=== PATIENT | male | born 2000 | race African-American/Black ===

== ENCOUNTER 2025-01-13 10:14 | Inpatient (IN) | payer OTHER ==
[~2025-01-13] VITALS: Ht 182.9 cm; Wt 86.4 kg
[~2025-01-13 10:14] MED LIST: NAPR-837 PO
[2025-01-13 11:20] LABS: PLATELET COUNT, AUTOMATED 222 10^3/uL (150-450)
[2025-01-13 11:40] LABS: ETHYL ALCOHOL (ETHANOL) 0.007 % (0.000-0.010); SALICYLATE LEVEL < 3.0 MG/DL (<30)
[2025-01-13 11:41] LABS: ALT/SGPT 54 U/L (7.0-40); AST/SGOT 27 U/L (<34); CALCIUM LEVEL 9.2 MG/DL (8.5-10.1); CARBON DIOXIDE LEVEL 24 MMOL/L (20-31); CHLORIDE LEVEL 107 MMOL/L (98-107); CREATININE FOR GFR 1.04 MG/DL (0.70-1.30); GLOMERULAR FILTRATION RATE > 90.0 (>60); POTASSIUM SERUM 4.1 MMOL/L (3.5-5.1); SODIUM LEVEL 142 MMOL/L (136-145)
[2025-01-13] MEDS ORDERED: HOME MED LIST COMPLETE! XX SCH (12:50)
[2025-01-13] MEDS ORDERED: MAALOX 30 ML SUSP *UDC PO PRN (13:15)
[2025-01-13] MEDS ORDERED: IBUPROFEN 400 MG TAB PO PRN (13:15)
[2025-01-13] MEDS ORDERED: LORazepam 1 MG TAB PO PRN (13:15)
[2025-01-13] MEDS ORDERED: MOM 30 ML SUSPENSION UDC PO PRN (13:15)
[2025-01-13] MEDS ORDERED: HALOPERIDOL 5 MG TAB PO PRN (13:15)
[2025-01-13] MEDS ORDERED: OLANZapine 5 MG TAB PO PRN (13:15)
[2025-01-13] MEDS ORDERED: ACETAMINOPHEN 325 MG TAB PO PRN (13:15)
[2025-01-13 14:10] LABS: AMPHETAMINES LEVEL URINE NEGATIVE (NEGATIVE); BARBITURATES URINE NEGATIVE (NEGATIVE); BENZODIAZEPINES URINE NEGATIVE (NEGATIVE); CANNABINOIDS URINE NEGATIVE (NEGATIVE); COCAINE METABOLITE URINE NEGATIVE (NEGATIVE); METHADONE URINE NEGATIVE (NEGATIVE); OPIATES URINE NEGATIVE (NEGATIVE); PHENCYCLIDINE URINE NEGATIVE (NEGATIVE)
[2025-01-13] MEDS: NICOTINE 14 MG/24 HR TRANSDERMAL TD SCH (14:15)
[2025-01-13 16:28] VITALS: BP 116/76; TEMP 98.2; O2SAT 100
[2025-01-13] MEDS: traZODone 50 MG TAB PO PRN (20:32)
[2025-01-14 06:39] VITALS: BP 118/59; TEMP 97.3; O2SAT 96
[2025-01-14] MEDS: SERTRALINE HCL 25 MG TABLET PO SCH (10:46)
[2025-01-14 15:13] VITALS: BP 130/70; TEMP 98.1; O2SAT 99
[2025-01-15 06:49] VITALS: BP 142/90; TEMP 97.1; O2SAT 97
[2025-01-15 10:32] VITALS: BP 142/90; TEMP 97.1; O2SAT 97
[2025-01-15 16:37] VITALS: BP 121/72; TEMP 98; O2SAT 95
[2025-01-16 06:28] VITALS: BP 129/75; TEMP 97.4; O2SAT 98
[2025-01-16 15:31] VITALS: BP 127/62; TEMP 98.1; O2SAT 98
[2025-01-17 06:49] VITALS: BP 119/70; TEMP 98; O2SAT 98
[2025-01-17 15:39] VITALS: BP 118/59; TEMP 98; O2SAT 99
[2025-01-18 06:32] VITALS: BP 130/70; TEMP 97.9; O2SAT 97
[2025-01-18 15:34] VITALS: BP 146/81; TEMP 98.1; O2SAT 100
[2025-01-19 06:34] VITALS: BP 143/77; TEMP 98.2; O2SAT 98
[2025-01-19] MEDS ORDERED: SERT25TA21 PO (08:42)
== END 2025-01-19 13:01 | disposition home or self-care (01) | DRG 881 ==
LOC: M ED 10:48 → M ED INP 13:14 → M PSY 14:42
PROVIDERS: ADMIT Internal Medicine; ATTEND Internal Medicine
DX: F32.A Depression, unspecified (principal); R45.851 Suicidal ideations; F17.290 Nicotine dependence, other tobacco product, uncomplicated; Z63.0 Problems in relationship with spouse or partner